=== PATIENT | female | born 1975 | race Asian ===

== ENCOUNTER 2017-10-09 14:25 | Emergency (ER) | payer SELFPAY ==
[~2017-10-09] VITALS: Ht 157.5 cm; Wt 45.0 kg
[2017-10-09 14:29] VITALS: BP 104/72; PULSE 103; RESP 18; TEMP 98.5; O2SAT 99
[2017-10-09] MEDS ORDERED: KETOROLAC TROMETHAMINE 30 MG/ML (IVP) VIAL IV PUSH ONE (15:00)
[2017-10-09] MEDS ORDERED: DIATRIZOATE MEGLUM/DIATRIZOATE SOD 9 ML CUP ONE (15:20)
[2017-10-09 15:24] LABS: AUTOMATED NEUTROPHIL # 16.4 TH/MM3 (1.8-7.7); BASOPHIL % 0.2 % (0.0-2.0); HEMATOCRIT 41.6 % (35.0-46.0); HEMOGLOBIN 14.4 GM/DL (11.6-15.3); LYMPH % 1.9 % (9.0-44.0); LYMPHOCYTE # 0.3 TH/MM3 (1.0-4.8); MEAN CELL VOLUME 89.4 FL (80.0-100.0); MEAN CORPUSCULAR HGB CONC 34.7 % (32.0-36.0); MEAN PLATELET VOLUME 8.4 FL (7.0-11.0); MONO % 3.2 % (0.0-8.0); MONOCYTE # 0.5 TH/MM3 (0-0.9); NEUT % 94.7 % (16.0-70.0); PLATELET COUNT 241 TH/MM3 (150-450); RED BLOOD COUNT 4.65 MIL/MM3 (4.00-5.30); RED CELL DISTRIBUTION WIDTH 13.1 % (11.6-17.2); WHITE BLOOD COUNT 17.3 TH/MM3 (4.0-11.0)
--- NOTE | 2017-10-09 15:24 | PD ---
HPI Chief Complaint: Abdominal Pain Time Seen by Provider: 14:41 Travel History International Travel<30 days: No Contact w/Intl Traveler<30days: No Traveled to known affect area: No History of Present Illness HPI A 42-year-old woman who speaks only Romansh. She is here with her sister and her friend. Friend provides translation. She was offered brick dropper but declined. She reports that she has had abdominal pain, gas pain and cramping in her stomach, and some vomiting, this ongoing since yesterday. She is a history of which she reports is an 8-9 cm fibroid on her uterus that has been there for about a year or so. She had been feeling generally well. She gets occasional intermittent abdominal pains. Symptoms worsened last night. Today she had some vomiting as well. Bowel movements been normal. Urine is been a little bit dark but otherwise unremarkable. She complains of some abnormal dark red vaginal discharge. Last menstrual cycle was last month. No history of abdominal surgery. History Past Medical History Narrative Medical Fibroid Tetanus Vaccination: > 5 Years Influenza Vaccination: No LMP: 09/22/17 : 0 Para: 0 Past Surgical History Surgical History: No Previous Surgery Social History Alcohol Use: No Tobacco Use: Yes Allergies-Medications (Allergen,Severity, Reaction): Coded Allergies: No Known Allergies (Unverified , 10/09/17) Reported Meds & Prescriptions Reported Meds & Active Scripts Active No Active Prescriptions or Reported Medications Review of Systems Except as stated in HPI: all other systems reviewed are Neg Physical Exam Narrative GENERAL: Well-appearing 42-year-old woman, no acute distress. SKIN: Focused skin assessment warm/dry. HEAD: Atraumatic. Normocephalic. CARDIOVASCULAR: Regular rate and rhythm. No murmur appreciated. RESPIRATORY: No accessory muscle use. Clear to auscultation. Breath sounds equal bilaterally. GASTROINTESTINAL: Abdomen is flat and soft. Mild lower abdominal tenderness with some voluntary guarding. No rebound. MUSCULOSKELETAL: No obvious deformities. No clubbing. No cyanosis. No edema. NEUROLOGICAL: Awake and alert. No obvious cranial nerve deficits. Motor grossly within normal limits. Normal speech. : Normal external female genitalia. U cervix is difficult to visualize an internal exam. No significant discharge. No blood. Bimanual exam large palpable firm uterus. Data Data Last Documented VS Vital Signs Date Time Temp Pulse Resp B/P (MAP) Pulse Ox O2 Delivery O2 Flow Rate FiO2 10/09/17 17:28 80 16 94/62 (73) 99 Room Air 10/09/17 14:29 98.5 Orders Orders Complete Blood Count With Diff (10/09/17 14:58) Comprehensive Metabolic Panel (10/09/17 14:58) Urinalysis - C+S If Indicated (10/09/17 14:58) Ed Urine Pregnancytest Poc (10/09/17 14:58) Ketorolac Inj (Toradol Inj) (10/09/17 15:00) Ct Abd/Pel W Iv Contrast(Rout) (10/09/17 ) Oral Contrast - Adult (10/09/17 15:08) Wet Prep Profile (10/09/17 15:14) Diatrizoate Liq ( Gastroview Liq) (10/09/17 15:20) Iohexol 350 Inj (Omnipaque 350 Inj) (10/09/17 17:00) Labs Laboratory Tests Test 10/09/17 15:00 10/09/17 15:15 White Blood Count 17.3 TH/MM3 Red Blood Count 4.65 MIL/MM3 Hemoglobin 14.4 GM/DL Hematocrit 41.6 % Mean Corpuscular Volume 89.4 FL Mean Corpuscular Hemoglobin 31.0 PG Mean Corpuscular Hemoglobin Concent 34.7 % Red Cell Distribution Width 13.1 % Platelet Count 241 TH/MM3 Mean Platelet Volume 8.4 FL Neutrophils (%) (Auto) 94.7 % Lymphocytes (%) (Auto) 1.9 % Monocytes (%) (Auto) 3.2 % Eosinophils (%) (Auto) 0.0 % Basophils (%) (Auto) 0.2 % Neutrophils # (Auto) 16.4 TH/MM3 Lymphocytes # (Auto) 0.3 TH/MM3 Monocytes # (Auto) 0.5 TH/MM3 Eosinophils # (Auto) 0.0 TH/MM3 Basophils # (Auto) 0.0 TH/MM3 CBC Comment DIFF FINAL Differential Comment Blood Urea Nitrogen 9 MG/DL Creatinine 0.70 MG/DL Random Glucose 114 MG/DL Total Protein 7.5 GM/DL Albumin 4.0 GM/DL Calcium Level 8.8 MG/DL Alkaline Phosphatase 43 U/L Aspartate Amino Transf (AST/SGOT) 13 U/L Alanine Aminotransferase (ALT/SGPT) 16 U/L Total Bilirubin 1.0 MG/DL Sodium Level 138 MEQ/L Potassium Level 3.5 MEQ/L Chloride Level 105 MEQ/L Carbon Dioxide Level 25.3 MEQ/L Anion Gap 8 MEQ/L Estimat Glomerular Filtration Rate 93 ML/MIN Urine Color YELLOW Urine Turbidity CLEAR Urine pH 6.5 Urine Specific [place] 1.026 Urine Protein 30 mg/dL Urine Glucose (UA) NEG mg/dL Urine Ketones 150 mg/dL Urine Occult Blood TRACE Urine Nitrite NEG Urine Bilirubin NEG Urine Urobilinogen 8.0 MG/DL Urine Leukocyte Esterase TRACE Urine RBC 1 /hpf Urine WBC 2 /hpf Urine Squamous Epithelial Cells 2 /hpf Urine Mucus MOD /lpf Microscopic Urinalysis Comment CULT NOT INDICATED Clue Cells (Wet Prep) NONE SEEN Vaginal Trichomonas (Wet Prep) NONE SEEN Vaginal Yeast (Wet Prep) NONE SEEN MDM Medical Decision Making Medical Screen Exam Complete: Yes Emergency Medical Condition: Yes Interpretation(s) LABS: CBC remarkable for white count 17,000 CMP is unremarkable. UA demonstrates some ketones, some urine. Wet preps negative. CT abdomen pelvis: Significant large uterus with numerous masses some of which are exophytic and the possibility of malignant degeneration of uterine fibroid should be entertained. Differential Diagnosis Pain from fibroid, obstruction, UTI, other Narrative Course Medical decision making INITIAL 42-year-old woman presents to the emergency department for abdominal discomfort and some retching. She has lower abdominal tenderness. She is a known large fibroid. Bimanual exam reveals fibroid but no other findings. Will check labs, urine, CT, likely supportive treatment, Toradol. FINAL: Reviewed findings with patient via brick dropper. Discussed specifically need for follow-up and concern for progression of malignancy in her fibroid tumors. Diagnosis Primary Impression: Abdominal pain Additional Instructions: Use naproxen as needed for pain. Use Zofran as needed for nausea or vomiting. Follow up with your doctor when you return to [place] for further evaluation Med/Other Pt SpecificInfo: Prescription(s) given Scripts Ondansetron Odt (Ondansetron Odt) 4 Mg Tab 4 MG SL Q6HR Y for Nausea/Vomiting, #10 TAB 0 Refills Prov: Oz Cabral MD 10/09/17 Naproxen (Naproxen) 500 Mg Tab 500 MG PO BID, #20 TAB 0 Refills Prov: Oz Cabral MD 10/09/17 Disposition: 01 DISCHARGE HOME Condition: Stable Oz Cabral MD Oct 09, 2017 15:23
[2017-10-09 15:38] LABS: ALT (GPT) 16 U/L (10-53); AST (GOT) 13 U/L (15-37); BICARBONATE 25.3 MEQ/L (21.0-32.0); BLOOD UREA NITROGEN 9 MG/DL (7-18); CALCIUM 8.8 MG/DL (8.5-10.1); CHLORIDE 105 MEQ/L (98-107); GLOMERULAR FILTRATION RATE 93 ML/MIN (>89); GLUCOSE,RANDOM 114 MG/DL (74-106); SODIUM (NA) 138 MEQ/L (136-145)
[2017-10-09 15:40] LABS: ALKALINE PHOSPHATASE 43 U/L (45-117); TOTAL PROTEIN 7.5 GM/DL (6.4-8.2)
[2017-10-09 15:44] LABS: BILIRUBIN, URINE NEG (NEG); BLOOD, URINE TRACE (NEG); GLUCOSE,URINE NEG (NEG); KETONE, URINE 150 mg/dL (NEG); MUCUS URINE MOD /lpf (OCC); NITRITE,URINE NEG (NEG); PH, URINE 6.5 (5.0-8.5); SQUAMOUS EPITHELIAL CELL URINE 2 /hpf (0-5); URINE COLOR YELLOW (YELLW/STRAW); URINE LEUKOCYTE ESTERASE TRACE (NEG)
[2017-10-09] MEDS ORDERED: IOHEXOL 350 MG/ML 10 ML VIAL (for RAD DIAG) IVCONTRAST ONE (17:00)
--- NOTE | 2017-10-09 17:21 | RADRPT ---
EXAM DATE/TIME: 10/09/2017 17:00 [facility] COMPARISON: No previous studies available for comparison. INDICATIONS : Lower abdomen pain today. IV CONTRAST: 72 cc Omnipaque 350 (iohexol) IV ORAL CONTRAST: Prescribed oral contrast ingested. RADIATION DOSE: 6.64 CTDIvol (mGy) MEDICAL HISTORY : uterine fibroids SURGICAL HISTORY : None. ENCOUNTER: Initial ACUITY: 1 day PAIN SCALE: 6/10 LOCATION: Bilateral abdomen TECHNIQUE: Volumetric scanning of the abdomen and pelvis was performed. Using automated exposure control and ad justment of the mA and/or kV according to patient size, radiation dose was kept as low as reasonably achievable to obtain optimal diagnostic quality images. DICOM format image data is available electro nically for review and comparison. FINDINGS: CT Abdomen: The liver, spleen, pancreas, kidneys, adrenals are unremarkable. There is no evidence for any appreciable pathological adenopathy, free fluid, or bowel obstruction. CT pelvis: There are numerous masses within an enlarged uterus the largest one measures 9.3 cm in siz e. These are most likely fibroids and several exophytic and appear to be degenerated and possibility of malignant degeneration should be entertained. There is an approximate 1.9 cm cyst in the right ova ry with smaller cysts in the left ovary as well. CONCLUSION: Significant enlarged uterus filled with numerous masses some of which are exophytic a nd the possibility of malignant degeneration of uterine fibroids should be entertained. Octavio Gee MD on October 09, 2017 at 17:14 Board Certified Radiologist. This report was verified electronically.
[2017-10-09 17:28] VITALS: BP 94/62; PULSE 80; RESP 16; O2SAT 99
[2017-10-09] MEDS ORDERED: NAPR500T2 PO (18:11)
[2017-10-09] MEDS ORDERED: ONDA4TAB7 SL (18:11)
[2017-10-09 18:20] VITALS: BP 94/62; TEMP 82
== END 2017-10-09 18:22 | disposition home or self-care (01) ==
LOC: NEPC 14:25
DX: R10.9 Unspecified abdominal pain (principal); N89.8 Other specified noninflammatory disorders of vagina; R11.10 Vomiting, unspecified; D25.9 Leiomyoma of uterus, unspecified; Z72.0 Tobacco use
CPT/HCPCS: 74177; 80053; 81001; 84703; 85025; 87210; 96374; 99284; J1885; Q9963; Q9967